=== PATIENT | female | born 1970 | race Caucasian/White ===

== ENCOUNTER 2022-03-18 12:43 | Outpatient (CLI) | payer BC, SELFPAY ==
--- NOTE | 2022-03-18 13:00 | MR_ITS ---
[address] [address] Phone:?[phone] Fax:?[phone] Referring Physician Information: Sigifredo Multani M.D. [address] [place] [id number] Phone:?[phone] Fax:?[phone] Patient:Verena Rosales D.O.B:?1970 Sex:?Female Phone:?[phone] [facility] MRN:?[id number] Exam Date:?03/18/2022 ? EXAM: MRI OF THE LEFT KNEE CLINICAL INFORMATION: The patient is a 51-year-old with left knee pain. Evaluate for medial meniscal tear. PRIOR SURGERY: None reported. COMPARISON STUDIES: There are no prior studies available for comparison. TECHNICAL INFORMATION: Imaging was performed on a high-field, 1.5 Yara MR scanner. Axial proton-density and fat-suppressed T2 imaging of the left knee was performed in addition to sagittal proton-density and fat-suppressed proton- density imaging. Coronal proton-density and coronal STIR imaging was also produced. FINDINGS: Articular/Extraarticular collections: Effusion: Mild to moderate. Popliteal cyst: Minimal. Loose bodies: No well-defined intra-articular loose bodies are present. Subcutaneous and extraarticular soft tissues: Within normal limits. Osseous structures: Mild reactive bony changes are seen along the articular surfaces of the patella, in keeping with the chondromalacia described below. No other bony abnormalities about the knee are present. No evidence for fracture, contusion, or stress injury can be seen. Ligamentous structures: ACL: Intact and normal in appearance. PCL: Intact and normal in appearance. MCL: Intact and normal in appearance. LCL: Intact and normal in appearance. Posterolateral corner: Intact and normal in appearance. Posteromedial corner: No posteromedial corner soft tissue injury. Semimembranosus and pes anserine tendons demonstrate no tendinopathy or associated bursitis. Extensor mechanism/Patellar retinacular structures: Patellar tendon: Intact, without tendinopathy. Quadriceps tendon: Intact, without tendinopathy. Retinacula: The medial and lateral retinacula are intact. The medial patellofemoral ligament is intact. Medial compartment: Medial meniscus: No evidence for medial meniscal tearing can be seen. There is no evidence for parameniscal cyst formation. No meniscocapsular separation injury is identified. Medial femoral condyle: No chondromalacia, chondral defect, or osteochondral abnormality. Medial tibial plateau: No chondromalacia, chondral defect, or osteochondral abnormality. Lateral compartment: Lateral meniscus: No evidence for lateral meniscal tearing is present. No evidence for parameniscal cyst formation can be seen. Lateral femoral condyle: No chondromalacia, chondral defect, or osteochondral abnormality. Lateral tibial plateau: Grade I chondromalacia of the lateral tibial plateau can be seen. No full-thickness chondral defects are identified. Patellofemoral compartment: Patella: Broad-based changes of grade II to III chondromalacia can be seen involving the patellar apex as well as the medial and lateral patellar facets on axial series 4 image 10, measuring approximately 31 mm in mediolateral dimension and 16 mm in craniocaudal dimension. Mild underlying bony changes within the patella are noted. Trochlea: No chondromalacia, chondral defect, or osteochondral abnormality. Neurovascular: No definite neurovascular abnormalities are seen. CONCLUSION: 1. 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 No definite full- thickness chondral defects about the knee are noted. 2. No well-defined medial or lateral meniscal tearing is seen. 3. The cruciate and collateral ligaments appear intact. 4. No acute bony abnormalities are present. 5. Mild to moderate knee joint effusion and minimal popliteal cyst. [facility] Electronically signed on 03/18/2022 3:10:00 PM by Ayan Haynes M.D.
--- NOTE | 2022-03-18 13:45 | MR_ITS ---
[address] [address] Phone:?[phone] Fax:?[phone] Referring Physician Information: Sigifredo Multani M.D. [address] [place] [id number] Phone:?[phone] Fax:?[phone] Patient:Verena Rosales D.O.B:?1970 Sex:?Female Phone:?[phone] [facility] MRN:?[id number] Exam Date:?03/18/2022 ? EXAM: MRI OF THE RIGHT KNEE CLINICAL INFORMATION: The patient is a 51-year-old with right knee pain. Evaluate for medial meniscal tear. PRIOR SURGERY: None reported. COMPARISON STUDIES: There are no prior studies available for comparison. TECHNICAL INFORMATION: Imaging was performed on a high-field, 1.5 Yara MR scanner. Axial proton-density and fat-suppressed T2 imaging of the right knee was performed in addition to sagittal proton-density and fat-suppressed proton- density imaging. Coronal proton-density and coronal STIR imaging was produced. FINDINGS: Articular/Extraarticular collections: Effusion: Mild to moderate. Popliteal cyst: Minimal. Loose bodies: No well-defined intra-articular loose bodies are seen. Subcutaneous and extraarticular soft tissues: Within normal limits. Osseous structures: Increased fat-suppressed signal intensity can be seen involving the lateral tibial plateau along the articular surfaces on coronal series 8 image 18 and on sagittal series 6 image 8. The findings may relate to reactive bony changes, mild bony contusion, or stress change. No definite evidence for well-defined fracture is seen. There is an indolent appearing chondroid focus within the central aspect of the distal femur are seen on sagittal series 6 image 17 and on coronal series 8 image 15. The findings are in keeping with a benign enchondroma measuring 16 mm in anteroposterior dimension, 18 mm in craniocaudal dimension, and 15 mm in mediolateral dimension. Mild degenerative or reactive bony changes are also seen along the medial aspect of the medial tibial plateau on coronal series 8 image 20. No other bony abnormalities about the knee are seen. Ligamentous structures: ACL: Intact and normal in appearance. PCL: Intact and normal in appearance. MCL: Intact and normal in appearance. LCL: Intact and normal in appearance. Posterolateral corner: Intact and normal in appearance. Posteromedial corner: No posteromedial corner soft tissue injury. Semimembranosus and pes anserine tendons demonstrate no tendinopathy or associated bursitis. Extensor mechanism/Patellar retinacular structures: Patellar tendon: Intact, without tendinopathy. Quadriceps tendon: Intact, without tendinopathy. Retinacula: The medial and lateral retinacula are intact. The medial patellofemoral ligament is intact. Medial compartment: Medial meniscus: No evidence for medial meniscal tearing can be seen. There is no evidence for parameniscal cyst formation. No meniscocapsular separation injury is identified. Medial femoral condyle: No chondromalacia, chondral defect, or osteochondral abnormality. Medial tibial plateau: No chondromalacia, chondral defect, or osteochondral abnormality. Lateral compartment: Lateral meniscus: The lateral meniscus is abnormal in appearance. There is broad-based tearing of the middle and anterior portions of the lateral meniscus, seen on coronal series 7 image 14 and on sagittal series 6 image 10. The area of lateral meniscal tearing measures approximately 18 mm in greatest dimension. Additional degeneration and tearing of the posterior horn can be seen on sagittal series 6 images 14 and 12. No evidence for well-defined parameniscal cyst formation is identified. Lateral femoral condyle: No chondromalacia, chondral defect, or osteochondral abnormality. Lateral tibial plateau: Grade II chondromalacia can be seen along the weightbearing surfaces of the lateral tibial plateau. No definite full-thickness chondral defects are seen. Patellofemoral compartment: Patella: Grade II to III chondromalacia can be seen involving the talar apex and medial patellar facet on axial series 3 image 11, measuring 18 mm in mediolateral dimension. No chondral injuries of the lateral patellar facet are present. Trochlea: No chondromalacia, chondral defect, or osteochondral abnormality. Neurovascular: No definite neurovascular abnormalities are seen. CONCLUSION: 1. Broad-based tearing of the lateral meniscus. No well-defined medial meniscal tearing is seen. 2. Chondromalacia and chondral loss involving the lateral tibial plateau and patella as described above. 3. Reactive edema versus contusion or stress change along the weightbearing surfaces of the lateral tibial plateau. 4. Indolent appearing chondroid focus within the distal humerus centrally. 5. Mild to moderate knee joint effusion. 6. The cruciate and collateral ligaments appear intact. [facility] Electronically signed on 03/18/2022 3:06:00 PM by Ayan Haynes M.D.
== END 2022-03-18 12:44 | disposition home or self-care (01) ==
PROVIDERS: Visit Provider Orthopaedic Surgery
DX: M25.561 Pain in right knee (principal); M25.562 Pain in left knee; S83.281A Other tear of lateral meniscus, current injury, right knee, initial encounter; M94.262 Chondromalacia, left knee; M25.462 Effusion, left knee; M22.41 Chondromalacia patellae, right knee; M25.461 Effusion, right knee
CPT/HCPCS: 73721